=== PATIENT | male | born 1995 | race Caucasian/White ===

== ENCOUNTER 2016-04-25 22:27 | Emergency (ER) | payer BC ==
[~2016-04-25] VITALS: Ht 188 cm; Wt 93.7 kg
[2016-04-25 22:33] VITALS: BP 130/83; PULSE 86; TEMP 37.1; O2SAT 95; Ht 188 cm; Wt 93.7 kg
[2016-04-25] MEDS ORDERED: PROPARACAINE HCL 0.5% OP SOLN 15 ML BTL OP STA (23:18)
[2016-04-25] MEDS ORDERED: PROPARACAINE HCL 0.5% OP SOLN 15 ML BTL ONE (23:19)
--- NOTE | 2016-04-26 04:15 | EMERGENCY ROOM VISIT NOTE ---
History First contact with patient: 23:10 Chief Complaint: HEADACHE Stated Complaint: BALL HIT LT SIDE OF FACE, BLURRED VISION, HEADACHE History of Present Illness The patient is a 20 year old male who presents to the Emergency Room with complaints of head injury today when he got hit in the face by a handball while playing handball. Patient was wearing contacts. He believes the ball might of hit his eye. Patient complains of pain around the eye and mild pain to the eye. Patient describes the headache as mild, 3 out of 10. Patient denies vomiting, diarrhea, loss of consciousness, dental pain, neck pain, jaw pain, nasal pain, loss of vision, change in vision, abdominal pain, chest pain, numbness, tingling or any other medical complaints. He has had a concussion before. Tetanus is current. Review of Systems See HPI for pertinent positives & negatives. A total of 10 systems reviewed and were otherwise negative. Past Medical/Surgical History Concussion Social History Smoking Status: Never Smoker Smokeless Tobacco Use: No Alcohol Use: none Drug Use: none Occupation Status: [employer] student Current/Historical Medications No Active Prescriptions or Reported Meds Allergies Coded Allergies: No Known Allergies (Unverified , 04/25/16) Physical Exam Vital Signs Date Time Temp Pulse Resp B/P Pulse Ox O2 Delivery O2 Flow Rate FiO2 04/25/16 22:33 37.1 86 16 130/83 95 Room Air Right Eye Acuity: 20/20 with glasses Left Eye Acuity: 20/15 with glasses Pain Rating (0-10): 0 Physical Exam VITALS: Vitals are noted on the nurse's note and reviewed by myself. Vital signs stable. GENERAL: Pleasant male, in no acute distress, nondiaphoretic, well-developed well-nourished. SKIN: The skin was without rashes, erythema, edema, or bruising. There is no tenting of the skin. Capillary reflex less than 2 seconds. HEAD: Normocephalic atraumatic. Face nontender to palpation Dental exam: No loose or chipped teeth EARS: External auditory canals clear, tympanic membranes pearly forrester without erythema or effusion bilaterally. EYES: Pupils equal round and reactive to light and accommodation. Conjunctivae without injection, sclerae without icterus. Extraocular movements intact. NOSE: Patent, turbinates without inflammation or discharge. No sinus tenderness. MOUTH: Mucous membranes moist. Pharynx without erythema or exudate. Uvula midline. Airway patent. Tongue does not deviate. NECK: Supple without nuchal rigidity. No lymphadenopathy. No thyromegaly. Cervical spine is nontender. No JVD. HEART: Regular rate and rhythm without murmurs gallops or rubs. LUNGS: Clear to auscultation bilaterally without wheezes, rales or rhonchi. No dullness to percussion. No retractions or accessory muscle use. ABDOMEN: Positive bowel sounds x 4. Normal tympanic percussion. Soft, nontender, without masses or organomegaly. Ferguson sign negative. No guarding or rebound tenderness. MUSCULOSKELETAL: No muscle atrophy, erythema, or edema noted. NEURO: Patient was alert and oriented to person place and time. Normal sensation to light and sharp touch. No focal neurological deficits. Cranial nerves II through XII grossly intact. No pronator drift. Cerebellar exam intact Medical Decision & Procedures Medications Administered Medications (Trade) Dose Ordered Sig/Eric Route Start Time Stop Time Status Last Admin Dose Admin Proparacaine HCl (Alcaine 0.5% Oph Soln) 2 drops NOW STAT OP 04/25/16 23:18 04/25/16 23:22 DC 04/25/16 23:26 2 DROPS Procedure Slit Lamp Examination Indication: Left eye pain The left eye was prepped with topical proparacaine. Slit lamp examination was performed in the standard fashion. Cornea appeared clear. Anterior chamber clear. Scleral injection was not present. No discharge present. Fluorescein examination performed and revealed no uptake. No foreign bodies noted. Negative Inga sign. The patient tolerated the procedure well without complication. ED Course Prior records/ancillary studies reviewed. Triage Nursing notes reviewed. The patient's history was concerning for traumatic head injury Differential diagnosis: Etiologies such as concussion, contusion, fracture, subdural hematoma, epidural hematoma, intraparenchymal hemorrhage, as well as other traumatic pathologies were entertained. Physical examination findings: As above. ER treatment provided: Patient was observed On reassessment the patient felt better. Diagnostics interpreted by me: Deferred It appears the patient has a concussion. I discussed the risks and the benefits of CT scanning. Clinically the patient is doing well and does not appear to have a significant underlying injury. The pt felt comfortable with conservative observation with the understanding if the clinical picture change that imaging may be necessary at a later time. I gave my usual and customary discussion regarding this issue. Patient was advised to return to the ER me for headache, fevers, confusion, worsening signs or symptoms or as needed. Patient was neurovascularly and neurologically intact. He was well-appearing. Unremarkable eye exam. Patient was given concussion clinic information. Patient was counseled on head injury signs and symptoms. By the evaluation outlined above emergent etiologies such as fracture, subdural hematoma, epidural hematoma, intraparenchymal hemorrhage, as well as others were deemed relatively unlikely. The pt informed about the findings as listed above. All questions were answered and pleased with the treatment. Return instructions were outlined and the patient was discharged in stable condition. Referral: The patient was referred back to their primary care physician for follow-up in 2 to 3 days for a recheck of the current condition. Medical Decision As above Impression Primary Impression: Concussion Departure Information Dispostion Home / Self-Care Condition GOOD Prescriptions No Active Prescriptions or Reported Meds Forms HOME CARE DOCUMENTATION FORM, School Instructions, Return To School: 1 day IMPORTANT VISIT INFORMATION Patient Instructions Concussion, [facility] Additional Instructions Read head injury handout and return for any symptoms. Tylenol 1000 mg as needed for pain (Maximum 3000 mg Tylenol in 24 hr period). Avoid alcohol and contact sports/activities for one week and follow up with family doctor prior to returning to these activities if still symptomatic. Ice and elevate head. If your symptoms persist more than a week then follow up with the concussion clinic. Call [phone]. Return to ER sooner for headache, fevers, confusion, worsening signs or symptoms or as needed. School Instructions Return To School: 1 day Problem Qualifiers Primary Impression: Concussion Encounter type: initial encounter Loss of consciousness presence/duration: without LOC Qualified Codes: S06.0X0A - Concussion without loss of consciousness, initial encounter
== END 2016-04-25 23:49 | disposition home or self-care (01) ==
LOC: C.EDB 22:30 → C.EDA 23:49
DX: S06.0X0A Concussion without loss of consciousness, initial encounter (principal); R51 Headache; H57.12 Ocular pain, left eye; W21.09XA Struck by other hit or thrown ball, initial encounter; Y93.73 Activity, racquet and hand sports; Y92.838 Other recreation area as the place of occurrence of the external cause